=== PATIENT | female | born 1965 ===

== ENCOUNTER 2024-01-29 10:50 | Outpatient (POV) | payer MEDICARE, SELFPAY ==
--- NOTE | 2024-01-29 11:54 | EXP.PAIN.PRO ---
Procedure Date: 01/29/24 Time: 11:54 Anesthesiologist:: June Ramos APRN Complications:: None Pre-procedure Diagnosis:: Degenerative disc disease of lumbar spine with lumbar radiculopathy symptoms, chronic pain syndrome Post-procedure Diagnosis:: Same Indications for Procedure:: Patient is a pleasant 58-year-old female who presents today as a transfer from the [facility] location for medication refill and intrathecal adjustment and reprogram. We were treating the patient there for degenerative disc disease of lumbar spine with lumbar radiculopathy symptoms, chronic pain syndrome. Patient has had [id number] medication along with heat and ice and topicals as well as injection therapy with no additional relief. She ended up having a intrathecal pain pump trial that gave 100% relief and ended up getting the pump implanted. Patient is currently managed with morphine 3 mg/mL with a daily dose of 0.4396 mg/day. She denies any side effects from this medication. She states that she feels like she has much better quality of life and is able at least to do things easier. She does state however she does still have to be very selective about what activities she is doing due to the worsening pain. She does still rely on a walker from time to time when the pain is worsening. Patient is currently managed with gabapentin 300 mg 4 times a day, Celebrex 200 mg daily and does states she takes Tylenol arthritis in combination. Patient is asking if we can refill these medications her Contreras has been reviewed and is appropriate. Physical Exam: General: Alert and oriented x3, no acute distress, pleasant and cooperative Lungs: Respirations even and unlabored, symmetrical chest expansion Eyes: PERRL Musculoskeletal: Flexion and extension of lumbar [spine] somewhat guarded secondary to pain, [antalgic gait noted] Neurological: Speech clear, no gross sensory deficit Procedure Details:: Informed consent was obtained and the risk and benefits of the procedure were explained to the patient. Patient was taken to the procedure room where noninvasive monitoring was placed including noninvasive blood pressure cuff and pulse oximeter. Patient's pump was interrogated and was reprogrammed to morphine 0.4834 mg/day. The patient tolerated the procedure well with no complications. Plan and Disposition:: Patient tolerated her intrathecal adjustment with no complications and was discharged neurologically intact. I have counseled the patient that we do typically see our at home refill patient's every 6 months unless needed to be seen sooner. Patient is agreeable to this plan of care. I will send a 90-day supply of her gabapentin 300 mg 4 times a day and Celebrex 100 mg twice a day and provide 1 refill. Patient will return to clinic in 1 month for reevaluation of symptoms and plan of care. I did executive assistant to general counsel the patient that we will make sure her [facility] nurse gets her updated telemetry report with the new refill date on or before February 16. Patient has been instructed to contact the clinic with any concerns before the next appointment. Dr. Tai has reviewed this note and agrees with this plan of care. This note was dictated using voice recognition software and make contain errors or omissions. -- It Is medically necessary for this patient to continue to have their intrathecal pump refilled at regular intervals. This patient had an intrathecal pain pump implanted after meeting criteria of chronic intractable pain for greater than 3 months and failing conservative treatments. Patient has committed and been compliant to the treatment plan and all planned follow up care. Since implantation of the intrathecal pain pump, the patient has had decreased pain and been more functional. Oral medications have been reduced including intake of oral opioids. Patient continues to do well with intrathecal therapy with decrease in pain symptoms and increase in functional status. Stopping intrathecal medications can lead to life threatening withdrawal, seizures, cardiac arrest, severe pain, and possible . Pumps that are not refilled at regular intervals can be damages and cause and need for replacement. We continually titrate dose and concentration to optimize pain relief and function. We are limited in concentration for certain drugs to safely deliver medications through the pump and stay within the recommendations from the Polyanalges[employer] Consensus Committee Guidelines. Depending on dose and concentration these pumps may need to be refilled sooner than 3 months as we titrate.
[2024-01-29 12:05] VITALS: BP 116/61; PULSE 77; RESP 18; O2SAT 98; BMI 34.7
== END 2024-01-29 23:59 | disposition home or self-care (01) ==
PROVIDERS: Visit Provider Nurse Practitioner Family
DX: M51.16 Intervertebral disc disorders with radiculopathy, lumbar region (principal); G89.4 Chronic pain syndrome; Z97.8 Presence of other specified devices; Z45.1 Encounter for adjustment and management of infusion pump
CPT/HCPCS: 62368; 99202; G0463

== ENCOUNTER 2024-03-17 11:23 | Outpatient (POV) | payer MEDICARE, SELFPAY ==
[2024-03-17 12:03] VITALS: BP 133/78; PULSE 89; RESP 18; O2SAT 96; BMI 34.9
--- NOTE | 2024-03-17 12:17 | A.OFFVIS_ITS ---
[facility] Disclaimer: The information contained in this section may have been updated after the patient was seen, as this information can be updated by other users. Medical History (Updated 03/17/24 @ 12:21 by June Ramos APRN) Hypothyroidism HLD (hyperlipidemia) Depression HTN (hypertension) GERD (gastroesophageal reflux disease) Surgical History (Updated 01/29/24 @ 12:10 by Alondra Perez RN) Surgical history unknown Family History (Updated 01/29/24 @ 12:09 by Alondra Perez RN) Other Unknown family medical history Social History (Updated 01/29/24 @ 12:12 by Alondra Perez RN) Smoking Status: Never smoker alcohol intake: never current occupational status: other Travel in the last 8 weeks: None PM Subjective & Objective Subjective Subjective:: Patient is a pleasant 58-year-old female who presents today for follow-up. Today she rates her pain a 3 out of 10. Patient states that she did notice significant swelling over the last several weeks and that she did go to her primary care doctor who did think it was her Celebrex. Patient states that she did discontinue this medication and is now been off of it for 8 days and she has noticed significant improvement in the leg swelling. Patient does state that initially when she got prescribed this medication it was not something that she took on a regular basis however when in the last few months she has started to use it more frequently as prescribed that is when the swelling increased. Patient does present today with a picture on her phone of the significant swelling she had. She states that it has not been anything like that since stopping the Celebrex. Patient is on gabapentin 300 mg 4 times a day however she states that she does not take this consistently and some days she will take 2 times and other days when its bad will take it 4 times. Patient states that she did just want to follow-up with us and make sure that we did not have any other concerns. Patient does state that she has recently had a nuclear stress test and everything on her cardiac work up was fine. Patient does state that she typically gets lab work every 6 months and states that she has not done this recently. Patient does state that the pain in her legs was significant when she was having the swelling and that it was constant throbbing. Patient is currently managed with morphine 3 mg/mL with a daily dose of 0.4834 mg/day. She denies any side effects from this medication and states that the current dosage is working well. Patient does already have her pump refill scheduled with her [facility] nurse. Her Contreras has been reviewed and is appropriate. Review of Systems: General: No recent weight changes, no fever, no sleep disturbances Respiratory: No cough, no shortness of air, no recurring pulmonary infections Cardiovascular/peripheral vascular: No chest pain, no palpitations, no edema, no shortness of breath Gastrointestinal: No new onset incontinence, normal bowel movements reported Genitourinary: No new onset incontinence Musculoskeletal: Low back pain, bilateral leg swelling Psychiatric: [Normal mood/affect] Neurological: [Denies weakness in extremities], [denies balance issues] Pain at rest (0-10 scale): 3 Objective Objective:: Physical Exam: General: Alert and oriented x3, no acute distress, pleasant and cooperative Lungs: Respirations even and unlabored, symmetrical chest expansion Eyes: PERRL Musculoskeletal: Flexion and extension of lumbar [spine] somewhat guarded secondary to pain, [antalgic gait noted] Neurological: Speech clear, no gross sensory deficit Has patient had previous pain injection?: No Conservative treatment options previously tried: Home exercise plan Length of treatment: Longer than 6 weeks Meds Home Medications and Allergies Home Medications ?Medication ?Instructions ?Recorded ?Confirmed ?Type aspirin 81 mg chewable tablet 81 mg PO DAILY 01/29/24 03/17/24 History atorvastatin 80 mg tablet 80 mg PO DAILY Cholesterol 01/29/24 03/17/24 History celecoxib 100 mg capsule 100 mg PO BID #180 caps 01/29/24 03/17/24 Rx celecoxib 200 mg capsule 200 mg PO DAILY Pain 01/29/24 03/17/24 History cetirizine 10 mg tablet 10 mg PO DAILY 01/29/24 03/17/24 History famotidine 20 mg tablet 20 mg PO DAILY 01/29/24 03/17/24 History gabapentin 300 mg capsule 300 mg PO QID Pain #360 caps 01/29/24 03/17/24 Rx (Neurontin) hydrochlorothiazide 25 mg tablet 25 mg PO DAILY Fluid 01/29/24 03/17/24 History levothyroxine 25 mcg tablet 25 mcg PO DAILY THYROID 01/29/24 03/17/24 History lisinopril 5 mg tablet 5 mg PO DAILY BLOOD PRESSURE 01/29/24 03/17/24 History oxybutynin chloride 10 mg 10 mg PO DAILY BLADDER 01/29/24 03/17/24 History tablet,extended release 24 hr paroxetine HCl 40 mg tablet 40 mg PO DAILY MOOD 01/29/24 03/17/24 History New Prescriptions to Start Prescriptions: Allergies Allergy/AdvReac Type Severity Reaction Status Date / Time empagliflozin Allergy Severe Rash Verified 01/29/24 11:08 fluconazole Allergy Severe Hives Verified 01/29/24 11:08 metformin AdvReac Intermediate Diarrhea Verified 01/29/24 11:08 Assessment and Plan *Assessment and plan (1) Degenerative disc disease, lumbar: Status: Acute Category: Medical Code(s): M51.36 - Other intervertebral disc degeneration, lumbar region (2) Lumbar radiculopathy: Status: Acute Category: Medical Code(s): M54.16 - Radiculopathy, lumbar region Plan I did discuss at length with the patient regarding her intrathecal pump and she states that she has never had any issues since she has had this device implant with swelling that would correlate to what she has recently been going through. Patient was counseled that I would continue to stay off the Celebrex and ensure that the symptoms do continually improve. I will order the patient a compounded cream to help with some of her aches and pains in her joints. Patient does already have her 6-month follow-up for our office scheduled in July and does not need any additional follow-ups at this time. Patient was counseled if she continues to have any worsening symptoms to please call us and let us know and we will get her in soon as possible. I did recommend for her to go ahead and make a follow-up appointment with her primary care to see about updated labs to confirm no other irregularities. Patient agrees with this plan of care. Patient has been instructed to contact the clinic with any concerns before the next appointment. Dr. Tai has reviewed this note and agrees with this plan of care. This note was dictated using voice recognition software and make contain errors or omissions. -- It Is medically necessary for this patient to continue to have their intrathecal pump refilled at regular intervals. This patient had an intrathecal pain pump implanted after meeting criteria of chronic intractable pain for greater than 3 months and failing conservative treatments. Patient has committed and been compliant to the treatment plan and all planned follow up care. Since implantation of the intrathecal pain pump, the patient has had decreased pain an d been more functional. Oral medications have been reduced including intake of oral opioids. Patient continues to do well with intrathecal therapy with decrease in pain symptoms and increase in functional status. Stopping intrathecal medications can lead to life threatening withdrawal, seizures, cardiac arrest, severe pain, and possible . Pumps that are not refilled at regular intervals can be damages and cause and need for replacement. We continually titrate dose and concentration to optimize pain relief and function. We are limited in concentration for certain drugs to safely deliver medications through the pump and stay within the recommendations from the Polyanalgesic Consensus Committee Guidelines. Depending on dose and concentration these pumps may need to be refilled sooner than 3 months as we titrate.
== END 2024-03-17 23:59 | disposition home or self-care (01) ==
LOC: SC.PAIN 11:24
PROVIDERS: Visit Provider Nurse Practitioner Family
DX: M51.16 Intervertebral disc disorders with radiculopathy, lumbar region (principal); Z79.899 Other long term (current) drug therapy
CPT/HCPCS: 99212; G0463